=== PATIENT | male | born 1985 | race Caucasian/White ===

== ENCOUNTER 2018-11-02 12:11 | Emergency (ER) | payer MEDICAID ==
[2018-11-02 12:41] LABS: BASOPHILS % (AUTO) 0.5 % (0-1); EOSINOPHILS # (AUTO) 0.2 X10'3 (0-0.9); EOSINOPHILS % (AUTO) 1.9 % (0-6); HEMATOCRIT 49.4 % (42.0-52.0); HEMOGLOBIN 15.8 g/dl (14.0-17.9); LYMPHOCYTES # (AUTO) 1.5 X10'3 (1.1-4.8); MEAN CORPUSCULAR HEMOGLOBIN 29.8 PG (27.0-31.0); MEAN CORPUSCULAR HGB CONC 31.9 % (33.0-36.5); MEAN CORPUSCULAR VOLUME 93.3 FL (78-98); MEAN PLATELET VOLUME 8.2 FL (7.4-10.4); MONOCYTES # (AUTO) 0.8 X10'3 (0-0.9); MONOCYTES % (AUTO) 9.6 % (2-12); NEUTROPHILS # (AUTO) 5.6 X10'3 (1.8-7.7); PLATELET COUNT 335 X10'3 (140-440); RED BLOOD COUNT 5.29 X10'6 (4.70-6.10); RED CELL DISTRIBUTION WIDTH 12.3 % (11.5-14.5); WHITE BLOOD COUNT 8.1 X10'3 (4.5-11.0)
[2018-11-02 12:52] LABS: PROTHROMBIN TIME 10.3 SECONDS (9.0-12.0)
[2018-11-02 12:53] LABS: PARTIAL THROMBOPLASTIN TIME 27 SECONDS (22-32)
[2018-11-02 13:01] LABS: ALANINE AMINOTRANSFERASE 34 U/L (12-78); ALBUMIN 4.1 G/DL (3.4-5.0); ALBUMIN/GLOBULIN RATIO 1.1 (1.1-1.5); ALKALINE PHOSPHATASE 102 IU/L (46-116); ANION GAP 10 (8-16); ASPARTATE AMINO TRANSFERASE 16 U/L (10-37); BILIRUBIN,TOTAL 0.8 MG/DL (0.1-1.0); BLOOD UREA NITROGEN 11 MG/DL (7-18); CALCIUM 8.6 MG/DL (8.5-10.1); CHLORIDE 100 MMOL/L (99-107); CREATININE 0.92 MG/DL (0.60-1.10); GLUCOSE 120 MG/DL (70-104); POTASSIUM 3.6 MMOL/L (3.5-5.1); SODIUM 138 MMOL/L (135-145); TOTAL CARBON DIOXIDE 28.2 MMOL/L (24-32); TOTAL PROTEIN 7.8 G/DL (6.4-8.2); eGFR > 90 ML/MIN
[2018-11-02 16:01] VITALS: BP 137/90
== END 2018-11-02 16:03 | disposition home or self-care (01) ==
LOC: ER 12:12
DX: F41.9 Anxiety disorder, unspecified (principal); I10 Essential (primary) hypertension
CPT/HCPCS: 36415; 71045; 80053; 84484; 85025; 85610; 85730; 93005; 99284

== ENCOUNTER 2019-06-17 15:14 | Emergency (ER) | payer MEDICAID ==
[~2019-06-17] VITALS: Ht 190.5 cm; Wt 141.4 kg
[2019-06-17] MEDS ORDERED: clindamycin phosphate 150mg/ml inj. IM ONE (15:55)
[2019-06-17] MEDS ORDERED: ketorolac trometh inj. 60 MG/2 ML VIAL IM ONE (15:55)
[2019-06-17] MEDS ORDERED: HYDROcodone/acetaminophen 10/325mg tab PO ONE (15:55)
[2019-06-17] MEDS ORDERED: CLIN300C63 PO (16:14)
[2019-06-17] MEDS ORDERED: HYDR-4353 PO (16:14)
[2019-06-17] MEDS ORDERED: CHLO473M3 PO (16:14)
[2019-06-17 16:25] VITALS: BP 138/86
== END 2019-06-17 16:27 | disposition home or self-care (01) ==
LOC: ER 15:14
DX: K04.7 Periapical abscess without sinus (principal)
CPT/HCPCS: 96372; 99283; J1885; J3490

== ENCOUNTER 2019-09-21 11:15 | Emergency (ER) | payer MEDICAID ==
[~2019-09-21] VITALS: Ht 190.5 cm; Wt 135.0 kg
[~2019-09-21 11:15] MED LIST: CHLO473M3 PO; CLIN300C63 PO
[2019-09-21 12:13] LABS: BASOPHILS # (AUTO) 0.1 X10'3 (0-0.2); BASOPHILS % (AUTO) 0.7 % (0-1); EOSINOPHILS # (AUTO) 0.2 X10'3 (0-0.9); EOSINOPHILS % (AUTO) 2.7 % (0-6); HEMATOCRIT 46.1 % (42.0-52.0); HEMOGLOBIN 15.8 g/dl (14.0-17.9); LYMPHOCYTES # (AUTO) 1.5 X10'3 (1.1-4.8); LYMPHOCYTES % (AUTO) 16.8 % (21-51); MEAN CORPUSCULAR HEMOGLOBIN 30.8 PG (27.0-31.0); MEAN CORPUSCULAR HGB CONC 34.2 g/dL (33.0-36.5); MONOCYTES # (AUTO) 0.7 X10'3 (0-0.9); MONOCYTES % (AUTO) 7.8 % (2-12); NEUTROPHILS # (AUTO) 6.6 X10'3 (1.8-7.7); PLATELET COUNT 326 X10'3 (140-440); RED BLOOD COUNT 5.12 X10'6 (4.70-6.10); WHITE BLOOD COUNT 9.2 X10'3 (4.5-11.0)
[2019-09-21 12:23] LABS: ALANINE AMINOTRANSFERASE 38 U/L (12-78); ALBUMIN 4.4 G/DL (3.4-5.0); ALBUMIN/GLOBULIN RATIO 1.2 (1.1-1.5); ANION GAP 14 (8-16); ASPARTATE AMINO TRANSFERASE 23 U/L (10-37); BILIRUBIN,TOTAL 0.8 MG/DL (0.1-1.0); BLOOD UREA NITROGEN 11 MG/DL (7-18); CALCIUM 9.1 MG/DL (8.5-10.1); CHLORIDE 101 MMOL/L (99-107); GLUCOSE 141 MG/DL (70-104); POTASSIUM 3.4 MMOL/L (3.5-5.1); SODIUM 138 MMOL/L (135-145); TOTAL CARBON DIOXIDE 23.2 MMOL/L (24-32); TOTAL PROTEIN 8.2 G/DL (6.4-8.2); eGFR 86 ML/MIN
[2019-09-21 12:24] VITALS: BP 147/99
[2019-09-21 12:24] LABS: ALKALINE PHOSPHATASE 103 IU/L (46-116)
[2019-09-21] MEDS ORDERED: normal saline 1000ml 1,000 ML IV ONE (12:30)
[2019-09-21] MEDS ORDERED: metoprolol succinate 25mg (24-HOUR) SR. Tablet PO ONE (12:30)
[2019-09-21] MEDS ORDERED: potassium Cl 20 mEq SR tablet PO STA (12:43)
[2019-09-21 13:14] LABS: CLARITY,URINE CLEAR (Clear); COLOR,URINE YELLOW (Yellow); GLUCOSE, URINE NEGATIVE (Neg); KETONES,URINE NEGATIVE (Neg); LEUKOCYTE ESTERASE ,URINE NEGATIVE (Neg); NITRITES, URINE NEGATIVE (Neg); OCCULT BLOOD,URINE NEGATIVE (Neg); PROTEIN,URINE TRACE mg/dl (Neg); URINE AMPHETAMINE SCREEN NEGATIVE (Neg); URINE BARBITUATE SCREEN NEGATIVE (Neg); URINE BENZODIAZEPINES SCREEN NEGATIVE (Neg); URINE CANNABINOID SCREEN POSITIVE (Neg); URINE COCAINE SCREEN NEGATIVE (Neg); URINE METHADONE SCREEN NEGATIVE (Neg); URINE OPIATE SCREEN NEGATIVE (Neg); URINE PHENCYCLIDINE SCREEN NEGATIVE (Neg); UROBILINOGEN,URINE 0.2 E.U/dL (0.2-1.0)
[2019-09-21 13:15] LABS: UA COLLECTION TYPE CLN CATCH MIDSTREAM
[2019-09-21 13:21] LABS: BACTERIA,URINE NONE SEEN /HPF (Neg); RBC,URINE NONE SEEN /HPF (0-2); WBC,URINE NONE SEEN /HPF (0-4)
[2019-09-21 13:22] LABS: HYALINE CASTS 0-3 /LPF (NEGATIVE); MUCUS STRANDS FEW /LPF (Neg); SPERM FEW /HPF (NEGATIVE); SQUAMOUS EPITHELIAL CELL,UR FEW /LPF (FEW)
[2019-09-21] MEDS ORDERED: METO-539 PO (13:49)
== END 2019-09-21 13:59 | disposition home or self-care (01) ==
LOC: ER 11:16
DX: R42 Dizziness and giddiness (principal); R00.2 Palpitations; F12.90 Cannabis use, unspecified, uncomplicated; Z79.899 Other long term (current) drug therapy
CPT/HCPCS: 36415; 71045; 80053; 80305; 81001; 84484; 85025; 93005; 96360; 99284; J7030

== ENCOUNTER 2019-12-16 05:30 | Emergency (ER) | payer MEDICAID ==
[~2019-12-16] VITALS: Ht 190.5 cm; Wt 136.0 kg
[2019-12-16] MEDS ORDERED: ketorolac trometh inj. 60 MG/2 ML VIAL IM ONE (05:50)
[2019-12-16] MEDS ORDERED: HYDR-4383 PO (05:50)
[2019-12-16] MEDS ORDERED: CYCL-1 PO (05:50)
[2019-12-16] MEDS ORDERED: cyclobenzaprine 10mg tablet PO ONE (05:50)
[2019-12-16] MEDS ORDERED: HYDROcodone/acetaminophen 10/325mg tab PO ONE (05:50)
[2019-12-16] MEDS ORDERED: NAPR-56 PO (05:50)
[2019-12-16 06:04] VITALS: BP 152/101
== END 2019-12-16 06:06 | disposition home or self-care (01) ==
LOC: ER 05:31
DX: M54.5 Low back pain (principal); M62.830 Muscle spasm of back; G89.29 Other chronic pain; F41.9 Anxiety disorder, unspecified; F12.90 Cannabis use, unspecified, uncomplicated; Z79.899 Other long term (current) drug therapy
CPT/HCPCS: 96372; 99283; J1885

== ENCOUNTER 2021-03-29 08:04 | Emergency (ER) | payer MEDICAID ==
[~2021-03-29] VITALS: Ht 190.5 cm; Wt 134.2 kg
[~2021-03-29 08:04] MED LIST changes: +CYCL-1 PO; +HYDR-4383 PO
[2021-03-29 08:07] VITALS: BP 151/81
[2021-03-29] MEDS ORDERED: HYDROcodone/acetaminophen 10/325mg tab PO ONE (08:40)
[2021-03-29] MEDS ORDERED: ondansetron 4mg rapidly disintigrating tab PO ONE (08:40)
[2021-03-29] MEDS ORDERED: dexamethasone 4mg tablet PO ONE (08:40)
[2021-03-29] MEDS ORDERED: METH4TAB81 PO (08:42)
[2021-03-29] MEDS ORDERED: ONDA4TAB6 PO (08:42)
[2021-03-29] MEDS ORDERED: METR500T PO (08:42)
[2021-03-29] MEDS ORDERED: HYDR-3965 PO (08:42)
[2021-03-29] MEDS ORDERED: AMOX500C2 PO (08:42)
== END 2021-03-29 09:07 | disposition home or self-care (01) ==
LOC: ER 08:05
DX: K04.7 Periapical abscess without sinus (principal); K02.9 Dental caries, unspecified; K04.1 Necrosis of pulp; G89.29 Other chronic pain; F41.9 Anxiety disorder, unspecified; F12.90 Cannabis use, unspecified, uncomplicated; Z79.899 Other long term (current) drug therapy
CPT/HCPCS: 99284

== ENCOUNTER 2021-10-26 13:40 | Emergency (ER) | payer MEDICAID ==
[~2021-10-26] VITALS: Ht 193 cm; Wt 122.7 kg
[~2021-10-26 13:40] MED LIST changes: +METH4TAB81 PO; +ONDA4TAB6 PO
[2021-10-26 14:22] VITALS: BP 135/88
== END 2021-10-26 20:37 | disposition left against medical advice (07) ==
LOC: ER 13:41
DX: R51.9 Headache, unspecified (principal); Z53.21 Procedure and treatment not carried out due to patient leaving prior to being seen by health care provider

== ENCOUNTER 2025-06-22 13:10 | Emergency (ER) | payer BC, MEDICAID ==
[~2025-06-22] VITALS: Ht 193 cm; Wt 132.5 kg
[~2025-06-22 13:10] MED LIST changes: +CHLO473M13 PO; -CHLO473M3 PO
[2025-06-22 13:19] VITALS: BP 155/99; PULSE 61; O2SAT 98
[2025-06-22 13:55] VITALS: RESP 16
[2025-06-22] MEDS: ketorolac trometh 30MG/ML vial 30 MG/ML VIAL IM ONE (13:55)
[2025-06-22] MEDS ORDERED: CYCL-1 PO (14:24)
[2025-06-22] MEDS ORDERED: IBUP-864 PO (14:24)
[2025-06-22] MEDS ORDERED: LIDO700A47 TOP (14:24)
--- NOTE | 2025-06-22 14:24 | Physician Documentation ---
History of Present Illness ~ Chief Complaint: Back Pain Stated Complaint: BACK PAIN Time Seen by MD: 13:30 Primary Medical Doctor: LIBBY PANIAGUA MEDICAL Source: patient Mode of Arrival: POV Exam Limitations: no limitations HPI 39-year-old male with history of chronic back pain does not have primary care but is experiencing sciatic pain lower lumbar pain since Wednesday after lifting a 60 lb dog and twisting. Patient denies any loss of bowel or bladder control or saddle paresthesia. Medication Reconciliation Allergies: Coded Allergies: No Known Allergies (Unverified , 06/22/25) Scheduled Chlorhexidine Gluconate (Periogard), 15 ML PO Q12H Clindamycin HCl (Clindamycin HCl), 1 CAP PO QID Cyclobenzaprine* (Cyclobenzaprine*), 1 TAB PO HS Cyclobenzaprine* (Cyclobenzaprine*), 1 TAB PO Q8H Hydrocodone/Acetaminophen ([place] 5-325 Tablet), 1 TAB PO Q12H PRN Ibuprofen (Ibu), 1 TAB PO Q8H Lidocaine (Lidocaine), 1 PATCH TOP DAILY Methylprednisolone (Medrol Dosepak), 1 TAB PO UD Scheduled PRN Ondansetron Hcl (Zofran), 1 TAB PO Q6H PRN for nausea/vomiting Past Medical History Past Medical History: Chronic Back Pain, Anxiety Past Surgical History: noncontributory Alcohol Use: None Drug Use: marijuana Lives with: Spouse Lives In: Home Occupation: employed Review of Systems All Other Systems at this time: Reviewed and Negative Musculoskeletal: Reports: see HPI Physical Exam Physical Exam Vital Signs: RN Vital Signs have been reviewed: Yes, Temperature: 98.9, Heart Rate: 61, Respiratory Rate: 16, BP: 155/99, Pulse Oximetry: 98, Weight: 132.500 Oxygen Flow Rate: 0 General Appearance: alert, WD/WN, no apparent distress Respiratory: normal breath sounds, no respiratory distress Chest: no accessory muscle use BacK: no CVA tenderness, no vertebral tenderness, muscle spasm, + straight leg raise Back Right SI joint tenderness positive straight leg raise a small amount of muscle rigidity to the right side no spinal process deformity or tenderness Progress Results/Orders Results/Orders Orders - LAURY FERRARO NP Lumbar Spine Limited (06/22/25 13:50) Completed Orders - LAURY FERRARO DIALYSIS TECH Ketorolac Trometh 30mg/Ml Vial (Toradol (06/22/25 13:50) Cyclobenzaprine Tablet (Flexeril Tablet) (06/22/25 13:50) Lumbar Spine Limited (06/22/25 13:50) Medications Received in ER Medications (Trade) Dose Ordered Sig/Bradley Route PRN Reason Start Time Stop Time Status Last Admin Dose Admin (Toradol inj. 30mg/ml) 30 mg ONCE ONCE IM 06/22/25 13:50 06/22/25 13:52 DC 06/22/25 13:55 30 MG (Flexeril tablet) 10 mg ONCE ONCE PO 06/22/25 13:50 06/22/25 13:52 DC 06/22/25 13:55 10 MG Vital Signs 06/22/25 06/22/25 13:19 13:55 Temp 98.9 Pulse 61 Resp 16 16 B/P (MAP) 155/99 Pulse Ox 98 O2 Flow Rate 0 EKG/XRAY/CT/US/VASC/MRI Bone/Soft Tissue X-Ray (Spine) : Additional Comment DI LUMBAR SPINE LIMITED, HISTORY: Lifting injury COMPARISON: None TECHNICAL DATA: Frontal and lateral views were obtained of the lumbar spine . FINDINGS: There are 5 lumbar type vertebral bodies. Lumbar curvature is within normal limits. There is no spondylolisthesis. Vertebral body heights are maintained. Disk heights are normal. The facet joints appear normal. The sacroiliac joints are symmetric. Paraspinal soft tissues are within normal limits. IMPRESSION: No acute fracture or dislocation of the lumbar spine. Medical Decision Making Findings Acute exacerbation of chronic back pain no loss of bowel or bladder control, IV drug use, saddle paresthesia to think spinal abscess. X-rays as courtesy to explore primary care, referrals for chronic back pain. Muscle relaxers and ibuprofen prescribed at today's visit. Patient to follow up Departure Time of Disposition: : Disposition: 01 HOME / SELF CARE / HOMELESS Impression: Primary Impression: Low back pain Additional Impressions: Strain of lumbar region Sciatica Condition: Stable Discharge Instructions: Sciatica, Lumbosacral Strain Additional Instructions: As we discussed this is likely a strain you will likely need more formal imaging for your chronic back pain with primary care, pain management, orthopedic spine. Use medications as prescribed rest use ice or heat for comfort DI LUMBAR SPINE LIMITED, HISTORY: Lifting injury COMPARISON: None TECHNICAL DATA: Frontal and lateral views were obtained of the lumbar spine . FINDINGS: There are 5 lumbar type vertebral bodies. Lumbar curvature is within normal limits. There is no spondylolisthesis. Vertebral body heights are maintained. Disk heights are normal. The facet joints appear normal. The sacroiliac joints are symmetric. Paraspinal soft tissues are within normal limits. IMPRESSION: No acute fracture or dislocation of the lumbar spine. Referrals: NO PRIMARY CARE PROVIDER (PCP) Prescriptions Lidocaine (Lidocaine) 5 % Adh..patch 1 PATCH TOP DAILY for 30 Days, #30 PATCH 0 Refills Prov: LAURY FERRARO NP 06/22/25 Cyclobenzaprine* (Cyclobenzaprine*) 10 Mg Tablet 1 TAB PO Q8H for muscle spasms for 10 Days, #30 TAB 0 Refills Prov: LAURY FERRARO NP 06/22/25 Ibuprofen (Ibu) 800 Mg Tablet 1 TAB PO Q8H for 7 Days, #21 TAB 0 Refills Prov: LAURY FERRARO NP 06/22/25 Education Educated: Patient Educated regarding: diagnosis, treatment, need for follow up Signature Scribe Signature: No scribe Attestation: The note accurately reflects work and decisions made by me.Laury Ferraro - FLOOR TECHNICIAN 06/22/25 14:24 LAURY FERRARO NP Jun 22, 2025 14:24
[2025-06-22 14:47] VITALS: TEMP 98.9
== END 2025-06-22 14:50 | disposition home or self-care (01) ==
LOC: ER 13:11
DX: S39.012A Strain of muscle, fascia and tendon of lower back, initial encounter (principal); F41.9 Anxiety disorder, unspecified; F12.90 Cannabis use, unspecified, uncomplicated; Z79.899 Other long term (current) drug therapy; X50.1XXA Overexertion from prolonged static or awkward postures, initial encounter; Y93.89 Activity, other specified; Y92.89 Other specified places as the place of occurrence of the external cause; Y99.8 Other external cause status
CPT/HCPCS: 72100; 96372; 99283; J1885